=== PATIENT | female | born 1975 | race Hispanic/Latino ===

== ENCOUNTER 2022-03-19 13:31 | Emergency (ER) | payer BC ==
[~2022-03-19] VITALS: Ht 157.5 cm; Wt 113.4 kg
[2022-03-19 13:54] LABS: BASOPHILS % (AUTO) 0.4 % (0.0-5.0); EOSINOPHILS % (AUTO) 0.9 % (0.0-8.0); HEMATOCRIT 46.2 % (36-48); LYMPHOCYTES % (AUTO) 25.4 % (21.0-51.0); MEAN CORPUSCULAR HEMOGLOBIN 28.1 pg (27.0-33.0); MEAN CORPUSCULAR HGB CONC 33.5 g/dL (32.0-36.0); MEAN CORPUSCULAR VOLUME 83.8 fL (79-99); MONOCYTES % (AUTO) 3.5 % (3.0-13.0); NEUTROPHILS % (AUTO) 69.3 % (40.0-77.0); PLATELET COUNT (AUTO) 307 K/uL (130-400); RED BLOOD CELL COUNT(AUTO) 5.51 MIL/uL (4.00-5.50); RED CELL DISTRIBUTION WIDTH 12.6 % (11.0-15.5); WHITE BLOOD COUNT (AUTO) 7.8 K/uL (4.8-10.8)
[2022-03-19] MEDS ORDERED: DICYCLOMINE HCL 10 MG/5 ML ML PO ONE (14:00)
[2022-03-19] MEDS ORDERED: LIDOCAINE HCL 2% VISCOUS 15 ML UDCUP PO ONE (14:00)
[2022-03-19] MEDS ORDERED: MAG/ALUM/SIMETH 30 ML UDCUP PO ONE (14:00)
[2022-03-19] MEDS ORDERED: FAMOTIDINE 20MG VIAL IV ONE (14:00)
[2022-03-19] MEDS ORDERED: ONDANSETRON 4MG INJ IVP ONE (14:00)
[2022-03-19 14:03] LABS: CREATININE 0.7 mg/dL (0.5-1.5); POTASSIUM 4.1 mmol/L (3.5-5.1)
[2022-03-19 14:08] LABS: TOTAL PROTEIN, SERUM 8.8 g/dL (6.0-8.3)
[2022-03-19 15:16] LABS: APPEARANCE,URINE Clear (CLEAR); BILIRUBIN,URINE Negative (NEGATIVE); COLOR,URINE Yellow (YELLOW); GLUCOSE, URINE (UA) Negative (NEGATIVE); KETONES,URINE Negative (NEGATIVE); LEUKOCYTE ESTERASE ,URINE Trace (NEGATIVE); NITRATE,URINE Negative (NEGATIVE); OCCULT BLOOD,URINE Negative (NEGATIVE); PH,URINE 6.5 (5.0-8.0); PROTEIN,URINE Negative (NEGATIVE); UROBILINOGEN,URINE 0.2 mg/dL (0.2-1.0)
[2022-03-19 15:43] LABS: BACTERIA,URINE Rare /HPF (None Seen); RBC,URINE 0-1 /HPF (0-1); SQUAMOUS EPITHELIAL CELL,UR Rare /HPF (0-2); WBC,URINE 0-1 /HPF (0-1)
[2022-03-19] MEDS ORDERED: FAMO-136 PO (15:49)
[2022-03-19] MEDS ORDERED: DICY20TA2 PO (15:49)
[2022-03-19] MEDS ORDERED: ONDA4TAB10 PO (15:49)
[2022-03-19 16:01] VITALS: BP 146/72
== END 2022-03-19 16:03 | disposition home or self-care (01) ==
LOC: EDH 13:31
DX: A08.4 Viral intestinal infection, unspecified (principal); E66.9 Obesity, unspecified; I10 Essential (primary) hypertension; Z68.42 Body mass index [BMI] 45.0-49.9, adult; Z79.899 Other long term (current) drug therapy; Z90.49 Acquired absence of other specified parts of digestive tract; Z98.890 Other specified postprocedural states
CPT/HCPCS: 99284; 96374; 71045; 96375; 84484; 80053; 83690; 85025; 81001; 81025; 36415; J3490; J2405

== ENCOUNTER → 2023-08-24 | Outpatient (CLI) | payer BC ==
[~2023-08-24] MED LIST: DICY20TA2 PO; FAMO-136 PO; IOHEXOL 350 MG/ML 100ML INFUS..BTL IV ONE; ONDA4TAB10 PO
== END | disposition home or self-care (01) ==
LOC: RAH 07:44
PROVIDERS: ATTEND Nurse Practitioner Family
DX: K76.0 Fatty (change of) liver, not elsewhere classified (principal); R10.32 Left lower quadrant pain; M47.815 Spondylosis without myelopathy or radiculopathy, thoracolumbar region; Z90.49 Acquired absence of other specified parts of digestive tract
CPT/HCPCS: 74178; Q9967